=== PATIENT | female | born 1985 | race Caucasian/White ===

== ENCOUNTER 2020-02-09 20:13 | Emergency (ER) | payer OTHER ==
[~2020-02-09] VITALS: Ht 170.2 cm; Wt 90.9 kg
[2020-02-09 20:30] VITALS: BP 116/86; TEMP 97.4
[2020-02-09 20:57] LABS: COLLECTION METHOD CLEAN CATCH
[2020-02-09 21:06] LABS: MUCOUS Present /lpf; PH 5 (5-8); SQUAMOUS EPITHELIAL 0-2 /hpf; URINE APPEARANCE Hazy; URINE BACTERIA None Seen /hpf; URINE BILIRUBIN Negative (NEGATIVE); URINE BLOOD Negative (NEGATIVE); URINE COLOR Yellow; URINE GLUCOSE Negative (NEGATIVE); URINE KETONE Negative (NEGATIVE); URINE LEUKOCYTE ESTERASE 1+ (NEGATIVE); URINE NITRATE Negative (NEGATIVE); URINE PROTEIN(semi-quant) Negative (NEGATIVE); URINE UROBILINOGEN Negative (NEGATIVE)
[2020-02-09] MEDS ORDERED: OMNICEF 300MG300 MG PO (21:12)
[2020-02-09 21:29] VITALS: PULSE 79
== END 2020-02-09 21:29 | disposition home or self-care (01) ==
LOC: COL.ER 20:13
PROVIDERS: Family Medicine
DX: N39.0 Urinary tract infection, site not specified (principal)

== ENCOUNTER 2020-05-16 19:36 | Emergency (ER) | payer OTHER ==
[~2020-05-16] VITALS: Ht 170.2 cm; Wt 93.2 kg
[~2020-05-16 19:36] MED LIST: OMNICEF 300MG300 MG PO
[2020-05-16] MEDS ORDERED: MEDROL 4MG DOSPA4 MG PO (21:26)
[2020-05-16] MEDS ORDERED: FLEXERIL 1010 MG/TAB PO (21:26)
[2020-05-16 21:34] VITALS: BP 131/72; PULSE 78; TEMP 98.3
== END 2020-05-16 21:34 | disposition home or self-care (01) ==
LOC: COL.ER 19:36
DX: M54.12 Radiculopathy, cervical region (principal); N30.00 Acute cystitis without hematuria; Z83.3 Family history of diabetes mellitus
CPT/HCPCS: J1885; J2360

== ENCOUNTER 2020-06-02 04:47 | Emergency (ER) | payer OTHER ==
[~2020-06-02] VITALS: Ht 170.2 cm; Wt 95.5 kg
[~2020-06-02 04:47] MED LIST changes: +FLEXERIL 1010 MG/TAB PO; +MEDROL 4MG DOSPA4 MG PO
[2020-06-02 04:51] VITALS: TEMP 99.3
[2020-06-02 05:44] LABS: BASO # 0.1 (0.0-0.2); BASO % 0.7 % (0.0-2.0); EOS # 0.2 (0.0-0.7); EOS % 2.3 % (0-4.0); GRAN # 7.2 (1.4-6.5); HEMATOCRIT 40.5 % (37.0-47.0); LYMPH # 0.9 (1.2-3.4); LYMPH % 10.3 % (20.0-51.0); MEAN CELL VOLUME 91 fl (80.0-100.0); MEAN CORPUSCULAR HEMOGLOBIN 31 pg (27.0-31.0); MEAN CORPUSCULAR HGB CONC 35 g/dl (33.0-37.0); MONO # 0.6 (0.1-0.6); MONO % 6.5 % (1.7-9.3); PLATELET COUNT 217 K/mm3 (130-400); RED BLOOD COUNT 4.46 M/mm3 (4.10-5.30); REDCELL DISTRIBUTION WIDTH-CV 12.3 % (11.5-14.5)
[2020-06-02 05:56] LABS: BILIRUBIN,TOTAL 0.6 mg/dL (0.0-1.0); CALCIUM 8.7 mg/dL (8.4-10.2); CREATININE, serum 0.83 (0.52-1.25); POTASSIUM 4.1 mmol/L (3.4-5.0); TOTAL PROTEIN 7.2 gm/dL (6.4-8.2)
[2020-06-02] MEDS ORDERED: DOXYCYCLINE HY100 MG PO (06:13)
[2020-06-02] MEDS ORDERED: TUSS PO (06:13)
[2020-06-02 07:02] VITALS: BP 123/75; PULSE 103
== END 2020-06-02 07:05 | disposition home or self-care (01) ==
LOC: COL.ER 04:47
PROVIDERS: Emergency Medicine
DX: J40 Bronchitis, not specified as acute or chronic (principal); Z20.822 Contact with and (suspected) exposure to COVID-19
CPT/HCPCS: J1100; J1885; J7030

== ENCOUNTER 2020-09-19 18:37 | Emergency (ER) | payer OTHER ==
[~2020-09-19] VITALS: Ht 170.2 cm; Wt 100.0 kg
[~2020-09-19 18:37] MED LIST changes: +DOXYCYCLINE HY100 MG PO; +TUSS PO
[2020-09-19 20:59] VITALS: BP 111/74; PULSE 80; TEMP 98.4
== END 2020-09-19 21:21 | disposition home or self-care (01) ==
LOC: COL.ER 18:37
DX: S93.401A Sprain of unspecified ligament of right ankle, initial encounter (principal); Z87.81 Personal history of (healed) traumatic fracture; Z88.3 Allergy status to other anti-infective agents; X50.1XXA Overexertion from prolonged static or awkward postures, initial encounter; Y93.E2 Activity, laundry